=== PATIENT | female | born 1960 | race African-American/Black ===

== ENCOUNTER → 2021-08-27 | Day surgery (SDC) | payer MEDICARE ==
[~2021-08-27] VITALS: Ht 157.5 cm; Wt 63.6 kg
[~2021-08-27] MED LIST: CARV12.511 PO; HYDROmorphone 2 MG/ML VIAL IVP PRN; IV RINGERS,LACTATED 1000ML 1,000 ML IV SCH; LOSA-73 PO; MORPHINE SULFATE 2 MG/ML INJ. IVP PRN; PROCHLORPERAZINE 10 MG/2 ML VIAL. IVP PRN; PROPOFOL 10 MG/ML (20ML) VIAL. IV ONE; fentaNYL PF VIAL 100 MCG/2 ML VIAL IVP PRN
[2021-08-27 08:38] VITALS: BP 113/71
--- NOTE | 2021-08-29 05:32 | HP ---
DATE OF SERVICE: 08/27/2021 ADMIT DATE: 08/27/2021 REASON FOR ADMISSION: Diarrhea and nausea. HISTORY OF PRESENT ILLNESS: A 61-year-old female whose past medical history is significant for IBS, palpitations, anxiety, fibromyalgia, status post IA as well as bowel obstruction, seen with worsening diarrhea, which is moderate in severity and is worsened with meals. Has 10 loose stools per day without bleeding. Weight and appetite have been stable, despite there is no family history of inflammatory bowel disease, colon cancer, celiac is noted and prior cholecystectomy is noted. There has been no recent antibiotics ____. No prior colonoscopy or upper endoscopy is noted. With continued symptoms, she requests additional evaluation. PAST MEDICAL HISTORY: Hypertension, palpitations, anxiety, fibromyalgia, IBS, bowel obstruction. ALLERGIES: None. MEDICATIONS: Include carvedilol and losartan. FAMILY HISTORY: Significant for breast cancer in sister, [place] with mother and child, hypertension. SOCIAL HISTORY: She is a nonsmoker, former drinker. PAST SURGICAL HISTORY: Noncontributory. REVIEW OF SYSTEMS: Per records. PHYSICAL EXAMINATION: VITAL SIGNS: Previously include heart rate is 79, blood pressure 107/71. LUNGS: Clear. CARDIOVASCULAR: S1, S2, without S3, S4 or appreciable murmur. ABDOMEN: Reveals a soft abdomen, normal bowel sounds with mild diffuse tenderness. EXTREMITIES: Reveals no cyanosis, clubbing or edema. IMPRESSION: Nausea and diarrhea, etiology to be determined. Differential includes irritable bowel syndrome, irritable bowel disease, colon cancer, colon polyps, eosinophilic gastritis, celiac disease, exocrine pancreatic insufficiency; therefore, recommend upper endoscopy and colonoscopy. These are nonrevealing. So the consideration of possible small bowel series would be pursued. ROLAN DR: Parviz TID: [id number]
--- NOTE | 2021-08-29 17:09 | PATHOLOGY ---
[facility] Accession Number: [id number] . 01 Material submitted: . PART A: duodenum - DUODENAL BIOPSY R/O CELIAC PART B: colon - RANDOM COLON BIOPSIES . 01 Clinical history: . ABDOMINAL PAIN EGD, COLONOSCOPY . 02 Diagnosis: A. Duodenal biopsies: - No diagnostic abnormalities. . B. Colonic mucosa, random colon biopsies: - No diagnostic abnormalities. (JPM:latha; 08/29/2021) QMS 08/29/2021 1123 Local . 02 Comment: Sections of the duodenal biopsy reveal multiple segments of duodenal mucosa. Where best oriented, the mucosal villi show no sprue-like changes or significant inflammatory changes. . Sections of the random colon biopsy reveal multiple segments of colonic mucosa containing a few mucosal-associated lymphoid aggregates. There is no evidence of a chronic destructive colitis, lymphocytic colitis, or collagenous colitis. (JPM:latha; 08/29/2021) . 02 Electronically signed: . Juanito Marie MD, Pathologist NPI- [id number] . 01 Gross description: . A. The specimen is received in formalin, labeled "Gilda Davies, duodenal BX R/O celiac" and consists of multiple guerra irregular tissues aggregating 1.3 x 0.6 x 0.2 cm which are filtered and submitted in toto in A1. . B. The specimen is received in formalin, labeled "Gilda Davies, random colon BX's" and consists of multiple guerra irregular tissues aggregating 1.5 x 1.0 x 0.2 cm which are filtered and submitted in toto in B1.([place]; 08/28/2021) DKA/DKA 08/28/2021 1243 Local . 02 Pathologist provided ICD-10: R10.9 . 02 CPT . 363393, [id number] Specimen Comment: A courtesy copy of this report has been sent to [phone], [phone] Specimen Comment: [id number] Specimen Comment: Report sent to / DR HOBSON Specimen Comment: A duplicate report has been generated due to demographic updates. Performed at: 01 [facility] [address] [facility] [address], [place] [id number] MD Pedro Brooke MD Phone: [phone] Performed at: 02 [facility] [address] [place], [place] [id number] MD Juanito Marie MD Phone: [phone]
== END | disposition home or self-care (01) ==
LOC: ENDOS 06:56
PROVIDERS: ATTEND Internal Medicine Gastroenterology
DX: R19.7 Diarrhea, unspecified (principal); K64.0 First degree hemorrhoids; K63.89 Other specified diseases of intestine; K31.89 Other diseases of stomach and duodenum; R11.0 Nausea; I10 Essential (primary) hypertension; F41.9 Anxiety disorder, unspecified; E78.00 Pure hypercholesterolemia, unspecified; Z79.899 Other long term (current) drug therapy; Z90.49 Acquired absence of other specified parts of digestive tract; Z90.710 Acquired absence of both cervix and uterus; Z98.890 Other specified postprocedural states; Z82.49 Family history of ischemic heart disease and other diseases of the circulatory system; Z80.3 Family history of malignant neoplasm of breast; Z20.822 Contact with and (suspected) exposure to COVID-19
CPT/HCPCS: 43239; 45380; 87426; J2704; 88305